=== PATIENT | male | born 1985 | race Caucasian/White ===

== ENCOUNTER 2016-10-15 11:40 | Emergency (ER) | payer OTHER ==
[~2016-10-15] VITALS: Ht 177.8 cm; Wt 68.0 kg
[2016-10-15 11:40] VITALS: BP 136/64; PULSE 97; RESP 18; TEMP 97; O2SAT 100
[2016-10-15] MEDS ORDERED: TETANUS/DIPHTHERIA TOXOID ADULT 0.5 ML VIAL IM ONE (12:15)
[2016-10-15] MEDS ORDERED: LIDOCAINE 1%/EPINEPHrine 1:100,000 SOLN 20 ML VIAL INFIL ONE (12:15)
[2016-10-15 12:30] LABS: AUTOMATED NEUTROPHIL # 11.2 TH/MM3 (1.8-7.7); BASOPHIL # 0.1 TH/MM3 (0-0.2); BASOPHIL % 0.5 % (0.0-2.0); EOSINOPHIL % 0.2 % (0.0-4.0); HEMATOCRIT 41.5 % (39.0-51.0); HEMO FLAGS DIFF FINAL; LYMPH % 14.8 % (9.0-44.0); LYMPHOCYTE # 2.1 TH/MM3 (1.0-4.8); MEAN CELL VOLUME 85.9 FL (80.0-100.0); MEAN CORPUSCULAR HEMOGLOBIN 29.2 PG (27.0-34.0); NEUT % 79.5 % (16.0-70.0); PLATELET COUNT 225 TH/MM3 (150-450); RED BLOOD COUNT 4.83 MIL/MM3 (4.50-5.90); RED CELL DISTRIBUTION WIDTH 14.3 % (11.6-17.2)
--- NOTE | 2016-10-15 12:36 | PD ---
Physical Exam Date Seen by Provider: Oct 15, 2016 Time Seen by Provider: 12:36 Narrative I was asked to repair a right lateral facial laceration near patient's eye by Dr. Burt. She his note for full H&P Data Data Last Documented VS Vital Signs Date Time Temp Pulse Resp B/P (MAP) Pulse Ox O2 Delivery O2 Flow Rate FiO2 10/15/16 11:59 16 10/15/16 11:40 97.0 97 136/64 (88) 100 Orders Orders Complete Blood Count With Diff (10/15/16 12:02) Comprehensive Metabolic Panel (10/15/16 12:02) Psych Screen (10/15/16 12:02) Drug Screen, Random Urine (10/15/16 12:02) Tetanus/Diphtheria Tox Adult (Tetanus/Di (10/15/16 12:15) Lidocai-Epi 1%-1:100,000 Inj (Xylocaine- (10/15/16 12:15) Lidocaine 1% Inj (50 Ml) (Xylocaine 1% I (10/15/16 12:45) Alcohol (Ethanol) (10/15/16 13:10) Labs Laboratory Tests Test 10/15/16 12:05 10/15/16 12:15 White Blood Count 14.0 TH/MM3 Red Blood Count 4.83 MIL/MM3 Hemoglobin 14.1 GM/DL Hematocrit 41.5 % Mean Corpuscular Volume 85.9 FL Mean Corpuscular Hemoglobin 29.2 PG Mean Corpuscular Hemoglobin Concent 34.0 % Red Cell Distribution Width 14.3 % Platelet Count 225 TH/MM3 Mean Platelet Volume 8.0 FL Neutrophils (%) (Auto) 79.5 % Lymphocytes (%) (Auto) 14.8 % Monocytes (%) (Auto) 5.0 % Eosinophils (%) (Auto) 0.2 % Basophils (%) (Auto) 0.5 % Neutrophils # (Auto) 11.2 TH/MM3 Lymphocytes # (Auto) 2.1 TH/MM3 Monocytes # (Auto) 0.7 TH/MM3 Eosinophils # (Auto) 0.0 TH/MM3 Basophils # (Auto) 0.1 TH/MM3 CBC Comment DIFF FINAL Differential Comment Blood Urea Nitrogen 17 MG/DL Creatinine 0.73 MG/DL Random Glucose 107 MG/DL Total Protein 7.7 GM/DL Albumin 4.0 GM/DL Calcium Level 8.7 MG/DL Alkaline Phosphatase 97 U/L Aspartate Amino Transf (AST/SGOT) 22 U/L Alanine Aminotransferase (ALT/SGPT) 31 U/L Total Bilirubin 0.3 MG/DL Sodium Level 141 MEQ/L Potassium Level 4.8 MEQ/L Chloride Level 109 MEQ/L Carbon Dioxide Level 26.3 MEQ/L Anion Gap 6 MEQ/L Estimat Glomerular Filtration Rate 126 ML/MIN Urine Opiates Screen NEG Urine Barbiturates Screen NEG Urine Amphetamines Screen NEG Urine Benzodiazepines Screen NEG Urine Cocaine Screen NEG Urine Cannabinoids Screen NEG MDM Medical Record Reviewed: Yes Supervised Visit with MARK: No Differential Diagnosis facial laceration Narrative Course Patient gave verbal consent to repair. patient tolerated without incident. 6 sutures placed without incident. Procedures Procedure Narrative LACERATION LOCATION: Right sided facial laceration near I LENGTH: 3 cm NUMBER OF STITCHES/ИРИНА: 6 REPAIR: The area of the laceration was prepped with Betadine and sterilely draped. The laceration was infiltrated with 1% lidocaine. The wound was copiously irrigated and explored without evidence of foreign body, tendon injury or neurovascular injury. The wound was closed using 6-0 Prolene. This was a single layer repair. A sterile dressing was applied. The patient was advised to keep the dressing clean and dry. Patient tolerated the procedure well. Diagnosis Primary Impression: Facial laceration Qualified Codes: S01.81XA - Laceration without foreign body of other part of head, initial encounter Additional Instruction: 6 sutures were placed near the right side of your eye. They will need to be removed in 5-7 days. Scripts No Active Prescriptions or Reported Meds Condition: Stable Mary Shanks Oct 15, 2016 12:36
[2016-10-15] MEDS ORDERED: LIDOCAINE HCL 1% 50 ML VIAL INFIL ONE (12:45)
[2016-10-15 12:50] LABS: ALT (GPT) 31 U/L (12-78); ANION GAP 6 MEQ/L (5-15); AST (GOT) 22 U/L (15-37); BICARBONATE 26.3 MEQ/L (21.0-32.0); BLOOD UREA NITROGEN 17 MG/DL (7-18); CHLORIDE 109 MEQ/L (98-107); GLOMERULAR FILTRATION RATE 126 ML/MIN (>89); POTASSIUM 4.8 MEQ/L (3.5-5.1); SODIUM (NA) 141 MEQ/L (136-145)
[2016-10-15 12:53] LABS: ALKALINE PHOSPHATASE 97 U/L (45-117); TOTAL BILIRUBIN ADULT 0.3 MG/DL (0.2-1.0)
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
[2016-10-15] MEDS ORDERED: RANI150T PO (14:23)
[2016-10-15] MEDS ORDERED: SERT-132 PO (14:23)
[2016-10-15] MEDS ORDERED: DOCU100C PO (14:23)
[2016-10-15] MEDS ORDERED: LORazepam 2 MG/ML VIAL IV PUSH PRN ×4 (16:45)
[2016-10-15] MEDS ORDERED: LORazepam 1 MG TAB PO PRN (16:45)
[2016-10-15] MEDS ORDERED: LORazepam 2 MG TAB PO PRN (16:45)
[2016-10-15] MEDS ORDERED: FLUMAZENIL 0.5 MG/5 ML VIAL IV PUSH PRN (16:45)
[2016-10-15 18:20] VITALS: BP 109/66; PULSE 101; RESP 18; O2SAT 95
[2016-10-15 23:00] VITALS: BP 112/68; PULSE 92; RESP 18; O2SAT 98
[2016-10-15] MEDS ORDERED: ACETAMINOPHEN 325 MG TAB PO ONE (23:30)
[2016-10-16 09:56] VITALS: BP 122/67; PULSE 84; RESP 18; O2SAT 98
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
--- NOTE | 2016-10-16 14:23 | PD ---
Physical Exam Time Seen by Provider: 14:15 Data Data Last Documented VS Vital Signs Date Time Temp Pulse Resp B/P (MAP) Pulse Ox O2 Delivery O2 Flow Rate FiO2 10/16/16 09:56 84 18 122/67 (85) 98 Room Air 10/15/16 11:40 97.0 Orders Orders Complete Blood Count With Diff (10/15/16 12:02) Comprehensive Metabolic Panel (10/15/16 12:02) Psych Screen (10/15/16 12:02) Drug Screen, Random Urine (10/15/16 12:02) Tetanus/Diphtheria Tox Adult (Tetanus/Di (10/15/16 12:15) Lidocai-Epi 1%-1:100,000 Inj (Xylocaine- (10/15/16 12:15) Lidocaine 1% Inj (50 Ml) (Xylocaine 1% I (10/15/16 12:45) Alcohol (Ethanol) (10/15/16 13:10) Alcohol Withdrawal Asmt-Ciwa Q4HX18 (10/15/16 16:33) Flumazenil Inj (Romazicon Inj) (10/15/16 16:45) Lorazepam (Ativan) (10/15/16 16:45) Lorazepam Inj (Ativan Inj) (10/15/16 16:45) Lorazepam (Ativan) (10/15/16 16:45) Lorazepam Inj (Ativan Inj) (10/15/16 16:45) Lorazepam Inj (Ativan Inj) (10/15/16 16:45) Lorazepam Inj (Ativan Inj) (10/15/16 16:45) ^ Seizure Precautions (10/15/16 16:33) Acetaminophen (Tylenol) (10/15/16 23:30) Diet Regular Basic (10/16/16 Breakfast) Diet Regular Basic (10/16/16 Lunch) Labs Laboratory Tests Test 10/15/16 12:05 10/15/16 12:15 10/15/16 12:24 White Blood Count 14.0 TH/MM3 Red Blood Count 4.83 MIL/MM3 Hemoglobin 14.1 GM/DL Hematocrit 41.5 % Mean Corpuscular Volume 85.9 FL Mean Corpuscular Hemoglobin 29.2 PG Mean Corpuscular Hemoglobin Concent 34.0 % Red Cell Distribution Width 14.3 % Platelet Count 225 TH/MM3 Mean Platelet Volume 8.0 FL Neutrophils (%) (Auto) 79.5 % Lymphocytes (%) (Auto) 14.8 % Monocytes (%) (Auto) 5.0 % Eosinophils (%) (Auto) 0.2 % Basophils (%) (Auto) 0.5 % Neutrophils # (Auto) 11.2 TH/MM3 Lymphocytes # (Auto) 2.1 TH/MM3 Monocytes # (Auto) 0.7 TH/MM3 Eosinophils # (Auto) 0.0 TH/MM3 Basophils # (Auto) 0.1 TH/MM3 CBC Comment DIFF FINAL Differential Comment Blood Urea Nitrogen 17 MG/DL Creatinine 0.73 MG/DL Random Glucose 107 MG/DL Total Protein 7.7 GM/DL Albumin 4.0 GM/DL Calcium Level 8.7 MG/DL Alkaline Phosphatase 97 U/L Aspartate Amino Transf (AST/SGOT) 22 U/L Alanine Aminotransferase (ALT/SGPT) 31 U/L Total Bilirubin 0.3 MG/DL Sodium Level 141 MEQ/L Potassium Level 4.8 MEQ/L Chloride Level 109 MEQ/L Carbon Dioxide Level 26.3 MEQ/L Anion Gap 6 MEQ/L Estimat Glomerular Filtration Rate 126 ML/MIN Urine Opiates Screen NEG Urine Barbiturates Screen NEG Urine Amphetamines Screen NEG Urine Benzodiazepines Screen NEG Urine Cocaine Screen NEG Urine Cannabinoids Screen NEG Ethyl Alcohol Level 177 MG/DL [facility] Medical Record Reviewed: Yes Supervised Visit with MARK: No Narrative Course I then informed that this patient is cleared from a psychiatric perspective and the Echevarria act was lifted by Dr. Bates, please see his note. The patient is currently sober, denies suicidal or homicidal ideation. [facility]. He is stable for discharge. Diagnosis Primary Impression: Alcohol abuse Additional Impression: Facial laceration Qualified Codes: S01.81XA - Laceration without foreign body of other part of head, initial encounter Additional Instruction: 6 sutures were placed near the right side of your eye. They will need to be removed in 5-7 days. Med/Other Pt SpecificInfo: Wound Care Disposition: DISCHARGE HOME Condition: Stable Alex Smiley Oct 16, 2016 14:23
[2016-10-16 14:37] VITALS: BP 122/67; TEMP 98.1
== END 2016-10-16 14:52 | disposition home or self-care (01) ==
LOC: NEPD 11:40 → NEPJ 10-16 14:52
DX: S01.81XA Laceration without foreign body of other part of head, initial encounter (principal); F10.20 Alcohol dependence, uncomplicated; F10.10 Alcohol abuse, uncomplicated; R45.851 Suicidal ideations; F17.200 Nicotine dependence, unspecified, uncomplicated; Z23 Encounter for immunization; X58.XXXA Exposure to other specified factors, initial encounter
CPT/HCPCS: 12013; 80053; 80307; 85025; 90471; 90714

== ENCOUNTER 2017-03-31 20:12 | Emergency (ER) | payer OTHER ==
[~2017-03-31] VITALS: Ht 177.8 cm; Wt 73.0 kg
[~2017-03-31 20:12] MED LIST: DOCU100C15 PO; RANI150T PO; SERT-132 PO
[2017-03-31 20:16] VITALS: BP 122/69; PULSE 101; RESP 18; TEMP 98.3; O2SAT 97
--- NOTE | 2017-03-31 20:28 | PD ---
HPI Chief Complaint: Skin Problem Time Seen by Provider: 20:27 Travel History International Travel<30 days: No Contact w/Intl Traveler<30days: No Traveled to known affect area: No History of Present Illness HPI 31-year-old male came to the emergency room with history of a penile lesion that he noticed 2 days ago. Patient says he tried to pop it and a little bit of pus and blood came out. This was at the tip of his penile shaft. Since then he is noticed that the swelling still persists. It's slightly tender to touch. Today he is significantly intoxicated. He is able to give history but he says that he doesn't feel much pain probably because of the alcohol. Is sexually active with one partner as per him. He has sex without condoms. No penile urethral discharge. [facility] Past Medical History Narrative Medical List of his past medical, surgical, social and family history as reviewed from the nursing note. Diminished Hearing: No GERD: Yes Psychiatric: Yes Past Surgical History Tonsillectomy: Yes Social History Alcohol Use: Yes (HX) Tobacco Use: Yes (1 PPD) Substance Use: Yes (1 PPD cigarettes, ETOH once/month, last use yesterday) Allergies-Medications (Allergen,Severity, Reaction): Coded Allergies: No Known Allergies (Verified Adverse Reaction, Unknown, 03/31/17) Comments No known drug allergies. Reported Meds & Prescriptions Reported Meds & Active Scripts Active No Active Prescriptions or Reported Medications Narrative Medication List of his home medications reviewed from the nursing note. Review of Systems Except as stated in HPI: all other systems reviewed are Neg Physical Exam Narrative GENERAL: Intoxicated, slurred speech but answering questions appropriately, no obvious distress SKIN: Focused skin assessment warm/dry. HEAD: Atraumatic. Normocephalic. EYES: Pupils equal and round. No scleral icterus. No injection or drainage. ENT: No nasal bleeding or discharge. Mucous membranes pink and moist. NECK: Trachea midline. No JVD. CARDIOVASCULAR: Regular rate and rhythm. No murmur appreciated. RESPIRATORY: No accessory muscle use. Clear to auscultation. Breath sounds equal bilaterally. GASTROINTESTINAL: Abdomen soft, non-tender, nondistended. Hepatic and splenic margins not palpable. : Patient is circumcised. At the tip of the penile shaft dorsally there is a 2 x 2 centimeter lesion that is firm to touch circular with no discharge and nontender. This is discoid in appearance. MUSCULOSKELETAL: No obvious deformities. No clubbing. No cyanosis. No edema. NEUROLOGICAL: Awake and alert. No obvious cranial nerve deficits. Motor grossly within normal limits. Normal speech. PSYCHIATRIC: Appropriate mood and affect; insight and judgment normal. Data Data Last Documented VS Vital Signs Date Time Temp Pulse Resp B/P (MAP) Pulse Ox O2 Delivery O2 Flow Rate FiO2 03/31/17 20:16 98.3 101 18 122/69 (86) 97 Orders Orders Gc And Chlamydia Pcr (03/31/17 20:42) Sodium Chloride 0.9% Flush (Ns Flush) (03/31/17 20:45) Rapid Plasmin Reagin Screen (03/31/17 20:42) Ed Discharge Order (03/31/17 21:06) Labs Laboratory Tests Test 03/31/17 21:00 Chlamydia trachomatis DNA (PCR) NOT DETECTED Neisseria gonorrhoeae DNA (PCR) NOT DETECTED MDM Medical Decision Making Medical Screen Exam Complete: Yes Emergency Medical Condition: Yes Medical Record Reviewed: Yes Differential Diagnosis Syphilis chancre, chancroid, STD Narrative Course 9:12 PM RPR and GC and chlamydia has been sent. These test results will not be back for 24-48 hours. At this point I'm comfortable discharging him home. He' ll go home with instructions to use condoms till the test results are back. If these are positive he'll be treated over the phone by calling in his pharmacy and his partner will need to be treated as well. Procedures EKG Prior to Arrival: No Diagnosis Primary Impression: Genital lesion, male Additional Impressions: STD (male) Acute alcohol intoxication Qualified Codes: F10.929 - Alcohol use, unspecified with intoxication, unspecified Referrals: Primary Care Physician 1 week Additional Instructions: Once the test results are back and if they're positive we'll call you and inform you. Till then he needs to practice sex with condoms only. She is also positive antibiotics will be called in to your pharmacy once the nurses spoken with you. At which point he'll partner needs to be treated as well. Med/Other Pt SpecificInfo: No Change to Meds Scripts No Active Prescriptions or Reported Meds Disposition: 01 DISCHARGE HOME Condition: Stable Stanley Chavarria MD Mar 31, 2017 20:28
[2017-03-31] MEDS ORDERED: SODIUM CHLORIDE 0.9% FLUSH 10 ML FLUSH IVF PRN (20:45)
== END 2017-03-31 21:13 | disposition left against medical advice (07) ==
LOC: PHED 20:12
DX: N50.9 Disorder of male genital organs, unspecified (principal); A64 Unspecified sexually transmitted disease; F10.929 Alcohol use, unspecified with intoxication, unspecified; F17.210 Nicotine dependence, cigarettes, uncomplicated
CPT/HCPCS: 86592; 87491; 87591; 99283